=== PATIENT | female | born 1995 | race Caucasian/White ===

== ENCOUNTER 2025-04-02 05:33 | Inpatient (IN) | payer BC, MEDICAID ==
[2025-04-01 11:24] LABS: Hematocrit 32.1 % (34.9-44.5); Hemoglobin 10.4 g/dL (12.0-15.5); Platelet Count 360 10x3/uL (150-450)
[2025-04-01 11:58] LABS: Syphilis Antibody Index 0.06 S/CO (<1.00 Non-Reactive)
[2025-04-01 12:01] LABS: HIV (1/2) Antibody/Antigen Non-Reactive (NonReactive); HIV 1/2 INDEX 0.17 S/CO (<1.00); Hep B Surf Ag Non-Reactive S/CO (NonReactive)
[2025-04-02] MEDS ORDERED: Ondansetron PF 4 MG/2 ML Vial IVP PRN ×3 (05:45→07:00)
[2025-04-02] MEDS ORDERED: hydrALAZINE 20 MG/ML VIAL SLOW IVP PRN ×2 (05:45→08:51)
[2025-04-02] MEDS ORDERED: Bicitra 30 ML UDCUP PO PRN (05:45)
[2025-04-02] MEDS ORDERED: Oxytocin 30 units/NS 500 ML 500 ML IV SCH (05:45)
[2025-04-02] MEDS ORDERED: Acetaminophen 500 MG TAB PO PRN (05:45)
[2025-04-02 05:50] VITALS: BMI 34.3
[2025-04-02] MEDS: Famotidine/PF 20 mg/2ml Vial SLOW IVP PRN (06:59)
[2025-04-02] MEDS ORDERED: Communication Order-Pharmacy FS SCH (07:00)
[2025-04-02] MEDS ORDERED: Ketorolac Tromethamine 30 MG (1 mL) VIAL IVP SCH (07:00)
[2025-04-02] MEDS ORDERED: Meperidine HCl/PF 25 MG (1 mL) VIAL SLOW IVP PRN (07:00)
[2025-04-02] MEDS ORDERED: Ketorolac Tromethamine 30 MG (1 mL) VIAL IVP PRN (07:00)
[2025-04-02] MEDS ORDERED: Boostrix 0.5 ML (Tdap) VIAL (>/=7 yrs of age) IM ONE (08:51)
[2025-04-02] MEDS ORDERED: Lanolin Ointment 7 GM TUBE TOP PRN (08:51)
[2025-04-02] MEDS ORDERED: Acetaminophen 325 MG TAB PO PRN (08:51)
[2025-04-02] MEDS ORDERED: HYDROcodone/Acetaminophen 5/325 mg Tablet PO PRN ×2 (08:51)
[2025-04-02] MEDS ORDERED: Bisacodyl 10 MG SUPP PR PRN (08:51)
[2025-04-02] MEDS: Dexamethasone 10 MG/ML VIAL ONE (13:58)
[2025-04-02] MEDS: Ondansetron PF 4 MG/2 ML Vial ONE (13:58)
[2025-04-02] MEDS: Oxytocin 10 UNITS/ML VIAL ONE (13:59)
[2025-04-02] MEDS: Ferrous Sulfate 325 MG TAB PO SCH (13:59)
[2025-04-02] MEDS: PHENYLEPHRINE-NS 100 MCG/ML 10 ML SYRINGE ONE (13:59)
[2025-04-02] MEDS: diphenhydrAMINE 50 MG/ML VIAL IVP PRN (20:06)
[2025-04-03] MEDS: Simethicone Chewable 80 MG TAB PO PRN (03:20)
[2025-04-03 05:31] LABS: Hematocrit 29.9 % (34.9-44.5); Hemoglobin 9.6 g/dL (12.0-15.5); Mean Corpuscular Hemoglobin 25.8 pg (27.0-33.0); Mean Corpuscular Volume 80.4 fL (81.6-98.3); Platelet Count 271 10x3/uL (150-450); Red Blood Cell (RBC) Count 3.72 10x6/uL (3.90-5.03); White Blood Cell (WBC) Count 14.73 10x3/uL (3.5-10.5)
[2025-04-04 07:42] VITALS: BP 116/71; TEMP 97.8
== END 2025-04-04 18:30 | disposition home or self-care (01) | DRG 788 ==
LOC: CSHLD 05:33 → CSHPED 11:20
PROVIDERS: ADMIT Obstetrics & Gynecology; ATTEND Obstetrics & Gynecology
PROC: 10D00Z1 Extraction of Products of Conception, Low, Open Approach (ICD-10-PCS; principal; 2025-04-02)
DX: O34.211 Maternal care for low transverse scar from previous cesarean delivery (principal); O99.52 Diseases of the respiratory system complicating childbirth; J45.909 Unspecified asthma, uncomplicated; O99.02 Anemia complicating childbirth; Z3A.39 39 weeks gestation of pregnancy; Z37.0 Single live birth; O76 Abnormality in fetal heart rate and rhythm complicating labor and delivery
CPT/HCPCS: 51702; 85014; 85018; 85027; 85049; 86780; 86850; 86900; 86901; 87340; 87389; C1889; J1100; J1200; J2270; J2274; J2405; J2550; J2590